=== PATIENT | male | born 1985 | race American Indian/Alaskan Native ===

== ENCOUNTER 2017-08-23 15:28 | Emergency (ER) | payer OTHER ==
[2017-08-23 15:43] VITALS: PULSE 78; RESP 18; TEMP 98; O2SAT 98
--- NOTE | 2017-08-23 15:49 | C.PDOC ---
History Of Present Illness 32 year old patient presents to the emergency department after sustaining a left ankle injury while playing basketball prior to arrival. Patient states that when he landed, he twisted his ankle. He is complaining of pain in both sides of his ankle, worse with movement, and his weight bearing is limited due to pain. Patient denies any other injuries. Time Seen by Provider: 08/23/17 15:45 Chief Complaint (Nursing): Lower Extremity Problem/Injury History Per: Patient Onset/Duration Of Symptoms: Hrs Current Symptoms Are (Timing): Still Present - Ankle/Foot Description Of Injury: Twisted Past Medical History Reviewed: Historical Data, Nursing Documentation, Vital Signs Vital Signs: Last Vital Signs Temp 98 F 08/23/17 15:41 Pulse 78 08/23/17 15:41 Resp 18 08/23/17 15:41 BP 136/86 08/23/17 15:41 Pulse Ox 98 08/23/17 15:57 - Medical History PMH: Asthma Surgical History: No Surg Hx Family History: States: No Known Family Hx - Social History Hx Tobacco Use: No Hx Alcohol Use: No Hx Substance Use: No - Immunization History Hx Tetanus Toxoid Vaccination: No Hx Influenza Vaccination: No Hx Pneumococcal Vaccination: No Review Of Systems Except As Marked, All Systems Reviewed And Found Negative. Musculoskeletal: Positive for: Foot Pain Physical Exam - Physical Exam Appears: Non-toxic, No Acute Distress Extremity: Normal ROM, Tenderness (noted at both malleoli), No Deformity, Other (skin intact) ED Course And Treatment O2 Sat by Pulse Oximetry: 98 (RA) Pulse Ox Interpretation: Normal - Other Rad Left Ankle + Foot X-Ray: Interpreted by Me Interpretation: Ankle negative. Foot negative Progress Note: Plan: Tylenol 650mg PO. Motrin 600mg PO. XR Left Ankle 3- Views. XR Left Foot 3-Views Disposition Counseled Patient/Family Regarding: Studies Performed, Diagnosis, Need For Followup - Disposition Referrals: Isai Mckeon MD [Staff Provider] - Disposition: HOME/ ROUTINE Disposition Time: 15:57 Condition: IMPROVED Instructions: Ankle Sprain (DC) Forms: [employer] (Frisian) - Clinical Impression Clinical Impression: Ankle sprain - Scribe Statement The provider has reviewed the documentation as recorded by the Scribe (Elie Chan) Provider Attestation: All medical record entries made by the Scribe were at my direction and personally dictated by me. I have reviewed the chart and agree that the record accurately reflects my personal performance of the history, physical exam, medical decision making, and the department course for this patient. I have also personally directed, reviewed, and agree with the discharge instructions and disposition. Orthopedic Care Application Of:: Ankle Air Cast
[2017-08-23 16:19] VITALS: BP 126/86
--- NOTE | 2017-08-23 16:49 | RAD ---
PROCEDURE: Left Ankle Radiographs. HISTORY: TRAUMA COMPARISON: None FINDINGS: BONES: Normal. No fracture. JOINTS: Normal. No osteoarthritis. Ankle mortise maintained. Talar dome intact SOFT TISSUES: Normal. OTHER FINDINGS: None. IMPRESSION: No evidence of acute fracture or dislocation.
--- NOTE | 2017-08-23 16:59 | RAD ---
PROCEDURE: Left Foot Radiographs. HISTORY: TRAUMA COMPARISON: None. FINDINGS: BONES: Acute slightly displaced fracture at the distal phalanx of the big toe JOINTS: Normal. SOFT TISSUES: Normal. OTHER FINDINGS: None. IMPRESSION: Acute fracture at the base of the distal phalanx of the big toe
== END 2017-08-23 16:18 | disposition home or self-care (01) ==
LOC: C.ER 15:28
DX: S93.402A Sprain of unspecified ligament of left ankle, initial encounter (principal); X50.1XXA Overexertion from prolonged static or awkward postures, initial encounter; Y93.67 Activity, basketball; Y92.39 Other specified sports and athletic area as the place of occurrence of the external cause

== ENCOUNTER 2017-12-06 15:30 | Emergency (ER) | payer OTHER ==
[2017-12-06 15:35] VITALS: BMI 27.1
[2017-12-06] MEDS ORDERED: Sodium Chloride 0.9% 1,000 ML IV ONE (16:33)
--- NOTE | 2017-12-06 16:41 | C.PDOC ---
History Of Present Illness 32 year old male patient with hx of scoliosis presents to the ER with c/o intermittent suprapubic abdominal pain. Associated symptoms includes lower back pain that started a few days ago along with the suprapubic abdominal pain and constipation that started a month ago. He also notes he sometimes have burning when urinating, usually after a shower. Patient states that his last bowel movement was yesterday and he is only able to have one with laxatives. Patient denies nausea, vomiting, fever, and penile discharge. Patient's PCP is a Doctor in [facility]. Time Seen by Provider: 12/06/17 16:11 Chief Complaint (Nursing): Abdominal Pain History/Exam Limitations: no limitations Onset/Duration Of Symptoms: Days Current Symptoms Are (Timing): Still Present Location Of Pain/Discomfort: Suprapubic Associated Symptoms: Back Pain (lower), Constipation, Urinary Symptoms (burning sensation when urinating at times). denies: Fever, Nausea, Vomiting, Other ( penile discharge) Past Medical History Reviewed: Historical Data, Nursing Documentation, Vital Signs Vital Signs: Last Vital Signs Temp 97.4 F L 12/06/17 15:35 Pulse 74 12/06/17 15:35 Resp 16 12/06/17 15:35 BP 155/82 H 12/06/17 15:35 Pulse Ox 100 12/06/17 16:49 - Medical History PMH: Asthma Family History: States: Unknown Family Hx - Social History Hx Tobacco Use: No Hx Alcohol Use: No Hx Substance Use: No - Immunization History Hx Tetanus Toxoid Vaccination: No Hx Influenza Vaccination: No Hx Pneumococcal Vaccination: No Review Of Systems Except As Marked, All Systems Reviewed And Found Negative. Constitutional: Negative for: Fever Gastrointestinal: Positive for: Abdominal Pain (suprapubic), Constipation. Negative for: Nausea, Vomiting Genitourinary: Positive for: Other (burning during urinating sometimes). Negative for: Penile Discharge Musculoskeletal: Positive for: Back Pain (lower) Physical Exam - Physical Exam Appears: Well, Non-toxic, No Acute Distress Skin: Normal Color, Warm, Dry Head: Atraumatic, Normacephalic Eye(s): bilateral: Normal Inspection Neck: Normal ROM, Supple Chest: Symmetrical, No Deformity Cardiovascular: Rhythm Regular Respiratory: Normal Breath Sounds Gastrointestinal/Abdominal: Bowel Sounds (slightly hyperactive ), Soft, Tenderness (suprapubic abdominal tenderness), No Guarding, No Rebound Back: No CVA Tenderness Extremity: Normal ROM (x4) Neurological/Psych: Oriented x3, Normal Speech Gait: Steady ED Course And Treatment - Laboratory Results Result Diagrams: 12/06/17 16:57 12/06/17 16:57 O2 Sat by Pulse Oximetry: 100 (RA) Pulse Ox Interpretation: Normal Medical Decision Making Medical Decision Making: Initial impression: suprapubic abdominal pain Plans: -- blood work -- pepcid -- IV fluids -- UA Disposition Counseled Patient/Family Regarding: Studies Performed, Diagnosis, Need For Followup - Disposition Disposition: HOME/ ROUTINE Disposition Time: 17:50 Condition: IMPROVED Additional Instructions: Mr. Melvin, thank you for letting us take care of you today. Return to the ER if your symptoms worsen, or if any problems. Take the medication listed below as prescribed. Please follow up with [facility] in 2 or 3 days for a re- evaluation. Prescriptions: Docusate [Colace] 1 tab PO TID #90 cap Ranitidine HCl [Zantac] 1 tab PO BID #30 tablet Instructions: Constipation in Adults, Acute Abdomen (Belly Pain), Adult (DC) Forms: [facility] (Citizen [place]), General Discharge Instructions Print Language: YI - POA Present On Arrival: None - Clinical Impression Clinical Impression: Abdominal pain, Constipation - Scribe Statement The provider has reviewed the documentation as recorded by the Rolo Matta Do Provider Attestation: All medical record entries made by the Jammieibe were at my direction and personally dictated by me. I have reviewed the chart and agree that the record accurately reflects my personal performance of the history, physical exam, medical decision making, and the department course for this patient. I have also personally directed, reviewed, and agree with the discharge instructions and disposition.
[2017-12-06 17:01] LABS: BASO # 0.1 K/uL (0.0-0.2); BASO % 0.9 % (0.0-2.0); EOS # 0.1 K/uL (0.0-0.7); EOS % 0.8 % (0.0-4.0); HEMOGLOBIN 14.2 g/dL (12.0-18.0); LYMPH # 1.6 K/uL (1.0-4.3); LYMPH % 19.1 % (20.0-40.0); MEAN CELL VOLUME 84.7 fL (80.0-94.0); MEAN CORPUSCULAR HEMOGLOBIN 27.6 pg (27.0-31.0); MEAN CORPUSCULAR HGB CONC 32.6 g/dL (33.0-37.0); MEAN PLATELET VOLUME 8.4 fL (7.2-11.7); MONO # 0.5 K/uL (0.0-0.8); MONO % 5.7 % (0.0-10.0); NEUT # 6.1 K/uL (1.8-7.0); NEUT % 73.5 % (50.0-75.0); NRBC % 0.2 % (0.0-2.0); RBC 5.14 Mil/uL (4.40-5.90); RED CELL DISTRIBUTION WIDTH 13.4 % (11.5-14.5); WHITE BLOOD COUNT 8.3 K/uL (4.8-10.8)
[2017-12-06] MEDS ORDERED: Sodium Chloride 0.9% 1,000 ML ONE (17:01)
[2017-12-06 17:14] LABS: URINE BILIRUBIN NEGATIVE (NEGATIVE); URINE BLOOD NEGATIVE (NEGATIVE); URINE CLARITY Hazy (Clear); URINE COLOR Yellow (YELLOW); URINE GLUCOSE (UA) NORMAL (Normal); URINE LEUKOCYTE ESTERASE NEG Leu/uL (Negative); URINE PROTEIN NEGATIVE (NEGATIVE); URINE UROBILINOGEN NORMAL mg/dL (0.2-1.0)
[2017-12-06 17:33] LABS: ALB/GLOB RATIO 1.4 (1.0-2.1); ALBUMIN 4.6 g/dL (3.5-5.0); ALT/SGPT 44 U/L (21-72); AST/SGOT 36 U/L (17-59); BLOOD UREA NITROGEN 12 mg/dL (9-20); CALCIUM 9.5 mg/dl (8.6-10.4); GFR AFRICAN-AMERICAN > 60; GFR NON-AFRICAN AMERICAN > 60; LIPASE 57 U/L (23-300)
[2017-12-06 17:58] VITALS: BP 136/72; PULSE 78; RESP 18; TEMP 98; O2SAT 98
== END 2017-12-06 17:58 | disposition home or self-care (01) ==
LOC: C.ER 15:30
DX: K59.00 Constipation, unspecified (principal); R10.30 Lower abdominal pain, unspecified
CPT/HCPCS: 80053; 81001; 83690; 85025; 96361; 96374; 99284; J7030

== ENCOUNTER 2018-06-06 16:56 | Emergency (ER) | payer OTHER ==
[2018-06-06 16:57] VITALS: BMI 27.1
[2018-06-06 17:18] VITALS: BP 146/77; PULSE 72; RESP 18; TEMP 98; O2SAT 98
--- NOTE | 2018-06-06 18:29 | RAD ---
Date of service: 06/06/2018 PROCEDURE: Left Ankle Radiographs. HISTORY: amterior ankle pain COMPARISON: None available. FINDINGS: BONES: Normal. No fracture. JOINTS: Normal. No osteoarthritis. Ankle mortise maintained. Talar dome intact SOFT TISSUES: Normal. OTHER FINDINGS: None. IMPRESSION: No evidence of acute fracture or dislocation.
--- NOTE | 2018-06-06 18:30 | C.PDOC ---
History Of Present Illness 33 y/o male presents to the ED complaining of left anterior ankle pain for 2 days. States he cannot recall specific injury but recently he has been walking a lot. Admits to multiple prior soft tissue injuries to the same ankle many years ago. Patient denies having any calf pain, SOB, chest pain, numbness, or tingling. Time Seen by Provider: 06/06/18 17:23 Chief Complaint (Nursing): Lower Extremity Problem/Injury History Per: Patient History/Exam Limitations: no limitations Onset/Duration Of Symptoms: Days (x 2) Current Symptoms Are (Timing): Still Present Severity: Moderate Past Medical History Reviewed: Historical Data, Nursing Documentation, Vital Signs Vital Signs: Last Vital Signs Temp 98 F 06/06/18 17:18 Pulse 72 06/06/18 17:18 Resp 18 06/06/18 17:18 BP 146/77 06/06/18 17:18 Pulse Ox 98 06/06/18 17:18 - Medical History PMH: Asthma Family History: States: Diabetes - Social History Hx Tobacco Use: No Hx Alcohol Use: No Hx Substance Use: No - Immunization History Hx Tetanus Toxoid Vaccination: No Hx Influenza Vaccination: No Hx Pneumococcal Vaccination: No Review Of Systems Cardiovascular: Negative for: Chest Pain Respiratory: Negative for: Shortness of Breath Musculoskeletal: Positive for: Foot Pain (left ankle). Negative for: Leg Pain Skin: Negative for: Rash, Lesions Neurological: Negative for: Weakness, Numbness Physical Exam - Physical Exam Appears: Non-toxic, No Acute Distress, Other (Appears comfortable) Skin: Warm, Dry Head: Atraumatic, Normacephalic Eye(s): bilateral: Normal Inspection, PERRL, EOMI Neck: Normal ROM Chest: Symmetrical Respiratory: No Accessory Muscle Use, Other (Speaking in full sentences) Extremity: Tenderness (Left anterior ankle is mildly TTP), No Calf Tenderness, Capillary Refill (< 2 sec), No Deformity, No Swelling, Other (No rash or increased warmth) Pulses: Left Dorsalis Pedis: Normal, Right Dorsalis Pedis: Normal Neurological/Psych: Oriented x3, Normal Speech ED Course And Treatment O2 Sat by Pulse Oximetry: 98 (RA) Pulse Ox Interpretation: Normal - Other Rad X-Ray Left Foot X-Ray: Interpreted by Me, Viewed By Me Interpretation: No acute fracture or dislocation Progress Note: Explained to patient that pain is likely due to soft tissue injury, however patient requests imaging. X-ray was taken of left ankle, and is unremarkable. Patient given PO ibuprofen for pain control. FERMIN wrap applied. Patient is medically stable for discharge home. Instructed on RICE and the importance of follow up with orthopedist. Disposition Counseled Patient/Family Regarding: Studies Performed, Diagnosis, Need For Followup, Rx Given - Disposition Referrals: Tyler Greenberg III, MD [Staff Provider] - [facility] [Outside] Disposition: HOME/ ROUTINE Disposition Time: 18:30 Condition: STABLE Additional Instructions: USE ANTI-INFLAMMATORY/PAIN MEDICATION NEEDED ELEVATE ANKLE AND TRY TO REST IT FOLLOW UP WITH ORTHOPEDICS OR PODIATRY WITHIN 1 WEEK IF SYMPTOMS PERSIST Prescriptions: Ibuprofen [Motrin Tab] 600 mg PO Q6 PRN #30 tab PRN Reason: fever/pain Instructions: Tendonitis (DC) Forms: [employer] (German) Print Language: GEORGIAN - Clinical Impression Clinical Impression: Anterior tibialis tendinitis - Scribe Statement The provider has reviewed the documentation as recorded by the Rolo Copeland Provider Attestation: All medical record entries made by the Rolo were at my direction and personally dictated by me. I have reviewed the chart and agree that the record accurately reflects my personal performance of the history, physical exam, medical decision making, and the department course for this patient. I have also personally directed, reviewed, and agree with the discharge instructions and disposition.
== END 2018-06-06 18:41 | disposition home or self-care (01) ==
LOC: C.ER 16:56
DX: M76.812 Anterior tibial syndrome, left leg (principal)